=== PATIENT | male | born 1970 | race Hispanic/Latino ===

== ENCOUNTER 2021-10-13 10:03 | Day surgery (SDC) | payer BC ==
[~2021-10-13 10:03] MED LIST: SODIUM CHLORIDE 0.9% 1000 ML 1,000 ML IV SCH
--- NOTE | 2021-10-13 11:09 | Anesthesia Consultation ---
Anesthesia Consult and Med Hx Date of service: 10/13/21 - Airway Anesthetic Teeth Evaluation: Good ROM Head & Neck: Adequate Mental/Hyoid Distance: Adequate Mallampati Class: Class II Intubation Access Assessment: Probably Good - Pre-Operative Health Status ASA Pre-Surgery Classification: ASA2 Proposed Anesthetic Plan: MAC - Pulmonary Hx Smoking: Yes (use smokeless tobacco for 25 years, quit 3 years ago) - Gastrointestinal Hx Ulcer: No (h/o colon polyps, benign rectal growth) Hx Gastroesophageal Reflux Disease: Yes
--- NOTE | 2021-10-13 11:10 | Anesthesia Day of Surgery ---
Anesthesia Day of Surgery - Day of Surgery Patient Examined: Yes Patient H&P Reviewed: Yes Patient is NPO: Yes (last water @8am)
[2021-10-13] MEDS ORDERED: propofoL 200 MG/20 ML VIAL IV ONE ×3 (11:36→11:53)
--- NOTE | 2021-10-13 12:19 | Procedure Note ---
Date of procedure: 10/13/21 Pre-op diagnosis: GERD/ H/o Rectal Melanoma Post-op diagnosis: other (Mild to Moderate Erosive Esophagitis/Gastritis/ Gastric Polyps/ R/O Eosinophilic Esophagitis/ R/O Celiac Disease/ No Colon Polyps noted/ H/O Rectal Melanoma (none now)/ Moderate, left Colon Diverticuli/ Minor,Internal Hemorrhoids) Procedure: EGD with Cold Biopsy/ Colonoscopy Anesthesia: [facility] [place] Surgeon: SIRI VELA Estimated blood loss: minimal Pathology: list Specimen disposition: to lab Condition: stable Disposition: same day (Treat with PPI, encourage fiber intake and avoid aspirin and NSAID for 5 days; otherwise resume previous medication. F/U in 1 to 2 weeks ([phone]).)
--- NOTE | 2021-10-13 12:22 | Operative Report ---
DATE OF SURGERY: 10/13/2021 PROCEDURE PERFORMED: EGD with biopsy. INDICATIONS: This is a 51-year-old white male who has been having GERD symptoms. EGD was done to assess for any significant upper GI pathology. DESCRIPTION OF PROCEDURE: Procedure was done after getting informed consent with MAC anesthesia. The instrument was passed through the hypopharynx into the esophagus, which showed some [id number] erosive esophagitis. Stomach showed some gastritis and gastric polyps in the proximal stomach, possibly benign. These were biopsied as well as the gastric antrum, gastric body and angular incisura to assess for H. pylori and atrophic gastritis. Additional biopsy was done from the distal esophagus to assess for the severity of erosive esophagitis and to rule out for eosinophilic esophagitis. The pylorus is patent. The duodenum in the first and second portion appeared normal. Biopsy was done from the second part to rule out for possible celiac disease. There was minimal bleeding associated with the procedure. No complications associated with the procedure. ASSESSMENT: Gastroesophageal reflux disease symptoms, [id number] erosive esophagitis, gastritis, gastric polyps in the proximal stomach, rule out eosinophilic esophagitis, rule out celiac disease. PLAN: To continue treatment with proton pump inhibitor, have the patient avoid aspirin and aspirin-related products for the next few days. A colonoscopy will be done because the patient has a prior history of a melanoma and to check for possible colon polyps. The patient will be asked to follow up in the office in 1-2 weeks' time. Procedure was done in the GI lab with assistance of the GI lab team, which included the GI nurse, the solar technician and with assistance of anesthesia. TID: [id number] RECEIPT: [id number] NERI/JEANNIE
--- NOTE | 2021-10-13 12:29 | Operative Report ---
DATE OF SURGERY: 10/13/2021 PROCEDURE PERFORMED: Colonoscopy. INDICATIONS: This is a 51-year-old white male who had a history of melanoma. Colonoscopy was done to make sure there was not any recurrence of any melanoma or any colon polyps. The patient had an EGD done prior to the colonoscopy, which showed possibly benign gastric polyps and gastritis and erosive esophagitis. DESCRIPTION OF PROCEDURE: Colonoscopy was done after getting informed consent with MAC anesthesia. Initial rectal exam was unremarkable. The instrument was passed through the rectum onto the cecum, which was identified by the ileocecal valve and appendiceal orifice. Visualization was fair to good. Cecum, ascending colon and transverse colon showed normal mucosa. There was moderate diverticular disease, some were deep in the left colon and the rectum appeared normal other than for some minor internal hemorrhoid on the retroverted view. There was no evidence of any melena or colon polyps noted at this time. ASSESSMENT: History of melanoma in the rectum, none now, no colon polyps noted. Moderate left colon diverticular disease, minor internal hemorrhoid. The patient will be asked to avoid aspirin and aspirin-related products for the next few days because of the EGD findings of esophagitis, gastritis and gastric polyps, which were biopsied. The patient will be asked to be continued treatment with PPI because of the upper GI findings. Encouraged to take fiber supplements and follow up in the office in 1-2 weeks' time. Procedure was done in the GI lab with assistance of the GI lab team, which included the GI nurse, the water filtration technician and with assistance of Anesthesia. TID: [id number] RECEIPT: [id number] NERI/SLOANE
--- NOTE | 2021-10-13 13:43 | Post Anesthesia Evaluation ---
- Post Anesthesia Evaluation Patient Participated: Yes Airway Patent: Yes Stable Respiratory Function: Yes Nausea/Vomiting: No Temp > 96.8F: Yes Pain Manageable: Yes Adequeate Hydration: Yes Anesthesia Complications: No Block Receding Appropriately: Not Applicable Patient on Ventilator: No
[2021-10-13 15:49] VITALS: BP 124/82
== END 2021-10-13 13:00 | disposition home or self-care (01) ==
LOC: GIO 10:03
DX: Z12.11 Encounter for screening for malignant neoplasm of colon (principal); K57.30 Diverticulosis of large intestine without perforation or abscess without bleeding; K64.8 Other hemorrhoids; K31.7 Polyp of stomach and duodenum; K31.89 Other diseases of stomach and duodenum; K29.70 Gastritis, unspecified, without bleeding; K21.00 Gastro-esophageal reflux disease with esophagitis, without bleeding; Z79.899 Other long term (current) drug therapy; Z85.048 Personal history of other malignant neoplasm of rectum, rectosigmoid junction, and anus
CPT/HCPCS: 43239; 45378; 88305; 88342; J2704; J7030